=== PATIENT | female | born 1975 | race Caucasian/White ===

== ENCOUNTER 2024-08-31 19:01 | Emergency (ER) | payer MEDICAID ==
[~2024-08-31] VITALS: Ht 160 cm; Wt 52.5 kg
[2024-08-31 19:11] VITALS: TEMP 97.6
[2024-08-31 19:27] LABS: BASOPHILS # (AUTO) 0.1 X10'3 (0-0.2); BASOPHILS % (AUTO) 1.3 % (0-1); EOSINOPHILS # (AUTO) 0.1 X10'3 (0-0.9); EOSINOPHILS % (AUTO) 1.2 % (0-6); HEMATOCRIT 26.7 % (35.0-45.0); HEMOGLOBIN 8.3 g/dl (12.0-16.0); LYMPHOCYTES % (AUTO) 25.5 % (21-51); MEAN CORPUSCULAR HEMOGLOBIN 21.2 PG (27.0-31.0); MEAN CORPUSCULAR HGB CONC 31.2 g/dL (33.0-36.5); MEAN PLATELET VOLUME 7.4 FL (7.4-10.4); MONOCYTES # (AUTO) 0.5 X10'3 (0-0.9); MONOCYTES % (AUTO) 6.6 % (2-12); NEUTROPHILS # (AUTO) 5.1 X10'3 (1.8-7.7); NEUTROPHILS % (AUTO) 65.4 % (42-75); PLATELET COUNT 454 X10'3 (140-440); RED BLOOD COUNT 3.93 X10'6 (4.20-5.60); RED CELL DISTRIBUTION WIDTH 18.3 % (11.5-14.5); WHITE BLOOD COUNT 7.7 X10'3 (4.5-11.0)
[2024-08-31 19:44] LABS: ALANINE AMINOTRANSFERASE 24 U/L (12-78); ALBUMIN 3.9 G/DL (3.4-5.0); ALBUMIN/GLOBULIN RATIO 1.2 (1.1-1.5); ALKALINE PHOSPHATASE 62 IU/L (46-116); ANION GAP 9 (8-16); ASPARTATE AMINO TRANSFERASE 17 U/L (10-37); BILIRUBIN,TOTAL 0.4 MG/DL (0.1-1.0); BLOOD UREA NITROGEN 16 MG/DL (7-18); BUN/CREATININE RATIO 22.9 (10.0-20.0); CALCIUM 8.9 MG/DL (8.5-10.1); CHLORIDE 105 MMOL/L (99-107); GLUCOSE 88 MG/DL (70-104); LIPASE 83 U/L (16-77); POTASSIUM 3.8 MMOL/L (3.5-5.1); SODIUM 138 MMOL/L (135-145); TOTAL CARBON DIOXIDE 24.5 MMOL/L (24-32); TOTAL PROTEIN 7.1 G/DL (6.4-8.2); eCRCL 82 ML/MIN; eGFR 90 ML/MIN
[2024-08-31 19:48] LABS: PLATELET ESTIMATE INCREASED
[2024-08-31 19:49] LABS: ANISOCYTOSIS 1+; MICROCYTOSIS 2+; POIKILOCYTOSIS FEW
[2024-08-31 21:19] LABS: BILIRUBIN,URINE NEGATIVE (Neg); CLARITY,URINE SLIGHTLY CLOUDY (Clear); COLOR,URINE YELLOW (Yellow); GLUCOSE, URINE NEGATIVE (Neg); KETONES,URINE 15 mg/dl (Neg); LEUKOCYTE ESTERASE ,URINE NEGATIVE (Neg); NITRITES, URINE POSITIVE (Neg); OCCULT BLOOD,URINE NEGATIVE (Neg); PH,URINE 5.5 (4.8-8.0); PROTEIN,URINE NEGATIVE (Neg); UROBILINOGEN,URINE 0.2 E.U/dL (0.2-1.0)
[2024-08-31 21:24] LABS: UA COLLECTION TYPE CLN CATCH MIDSTREAM
[2024-08-31 21:27] LABS: URINE HCG NEGATIVE (NEG)
[2024-08-31 21:29] LABS: BACTERIA,URINE 4+ /HPF (Neg); RBC,URINE NONE SEEN /HPF (0-2); SQUAMOUS EPITHELIAL CELL,UR MODERATE /LPF (FEW)
[2024-08-31] MEDS ORDERED: ketorolac trometh 15mg/ml vial 15 MG/ML ML IV STA (22:16)
[2024-08-31] MEDS: morphine 4 MG/ML inj SYRINge IV ONE ×2 (22:46→23:51)
[2024-08-31] MEDS ORDERED: iohexol 300mg/ml 100ml inj. ONE (23:13)
[2024-08-31] MEDS: CefTRIAXone 2gm/D5W 50ml BAG 50 ML IV ONE (23:17)
[2024-09-01] MEDS ORDERED: morphine 4 MG/ML inj SYRINge IV ONE (01:05)
[2024-09-01] MEDS: morphine 4 MG/ML inj SYRINge IV ONE (01:17)
[2024-09-01] MEDS: metroNIDAZOLE-Flagyl 500mg/NS 100 ML IV STA (01:52)
[2024-09-01] MEDS ORDERED: CEFD300C3 PO (01:53)
[2024-09-01] MEDS ORDERED: METR-159 PO (01:53)
[2024-09-01] MEDS: morphine sulfate IR 15MG tablet PO ONE (02:54)
[2024-09-01 04:18] VITALS: BP 95/51; PULSE 64; RESP 14; O2SAT 99
== END 2024-09-01 04:21 | disposition home or self-care (01) ==
LOC: ER 19:02
DX: K52.9 Noninfective gastroenteritis and colitis, unspecified (principal); D64.9 Anemia, unspecified
CPT/HCPCS: 74177; 80053; 81001; 81025; 83690; 85008; 85025; 87077; 87088; 87186; 96365; 96367; 96375; 96376; 99285; J0696; J2270; J3490; Q9967

== ENCOUNTER 2025-02-13 04:44 | Emergency (ER) | payer MEDICAID ==
[~2025-02-13] VITALS: Ht 160 cm; Wt 52.5 kg
--- NOTE | 2025-02-13 09:27 | ELECTROCARDIOGRAPH REPORT ---
[facility] Test Date: 2025-02-13 Test Time: 09:22:54 Pat Name: JOHN HERNANDES Department: [facility]- Patient ID: [facility]-[id number] Room: Gender: F Laser Technician: : 1975 Requested By: SANYA CABALLERO Order Number: [id number] Reading MD: Dr. Kwabena Tillman Measurements Intervals [place] Rate: 69 P: 56 CT: 121 QRS: 73 QRSD: 99 T: 36 QT: 391 QTc: 419 Interpretive Statements Ventricular-paced complexes No further rhythm analysis attempted due to paced rhythm Electronically Signed On 02-16-2025 21:45:[address] Kwabena Tillman Please click the below link to view image of tracing.
--- NOTE | 2025-02-13 09:38 | RADIOLOGY REPORT ---
CHEST RADIOGRAPH Indication: CP Technique: Single frontal view of the chest was obtained COMPARISON: None FINDINGS: Lines and Tubes: None Lungs: Clear Pleura: No effusion. No pneumothorax. Cardiomediastinal contours: Unremarkable Bones: Unremarkable IMPRESSION: No acute disease.
[2025-02-13 09:47] LABS: MEAN PLATELET VOLUME 8.1 FL (7.4-10.4); RED CELL DISTRIBUTION WIDTH 19.8 % (11.5-14.5)
--- NOTE | 2025-02-13 09:50 | Physician Documentation ---
History of Present Illness ~ Chief Complaint: See Chief Complaint Stated Complaint: SEE CHIEF COMPLAINT M ALS Time Seen by MD: 09:01 HPI This is a 49-year-old female who presents by EMS for chest pain, nausea, dry heaving, and diarrhea onset last night, patient reports she is unable to vomit due to history of gastric bypass surgery. Patient additionally reports diaphoresis when symptoms were present. Reports the chest pain has decreased though is still present substernally. Patient reports no abdominal pain. Last bowel movement 4:00 a.m.. Patient reports that she has had similar symptoms intermittently since May when starting on multiple medications she reports he has discussed this with her primary care provider who is attempting adjust her medications the patient reports follow up appointment with primary in the coming weeks. Medication Reconciliation Allergies: Coded Allergies: No Known Allergies (Unverified , 02/13/25) Scheduled Cephalexin*Monohydrate* (Keflex*), 1 CAP PO QID Past Medical History Past Surgical History: gastric bypass Review of Systems ROS As stated above in the HPI, otherwise all systems are reviewed and negative. Physical Exam Vital Signs: Source: Temporal, Heart Rate: 93, Respiratory Rate: 18, BP: 95/55, Pulse Oximetry: 100, Weight: 52.500 Physical Exam VITALS: Reviewed and as above. GENERAL: Alert, nontoxic appearing, no apparent distress. RESPIRATORY: No increased work of breathing, no respiratory distress, speaking in full clear sentences clear lung sounds in all horowitz CV: Regular rate and rhythm no murmur BACK: No CVA tenderness GI: Mild upper abdominal tenderness greatest in left upper quadrant otherwise soft, non distended, no rebound, no guarding, bowel sounds present MUSCULOSKELETAL: SKIN: Warm and dry Progress Results/Orders Results/Orders Orders - SANYA CABALLERO Chest,Single View (02/13/25 09:11) Monitor (02/13/25 09:11) Saline Lock (02/13/25 09:11) Oxygen (02/13/25 09:11) Completed Orders - SANYA CABALLERO Cbc/Diff (02/13/25 09:11) Chest,Single View (02/13/25 09:11) PBNP (02/13/25 09:11) Electrocardiogram (02/13/25 09:11) Hs Troponin I W Calculations (02/13/25 09:11) Hs Troponin I W Calculations (02/13/25 11:11) Hcg, Ur Ql (02/13/25 09:11) Lipase (02/13/25 09:11) CMP (02/13/25 09:11) Normal Saline 1000ml (0.9% Sodium Chlori (02/13/25 10:30) Ua W/Microscopic, Cult If Ind (02/13/25 10:04) Vital Signs 02/13/25 02/13/25 02/13/25 04:48 10:21 10:39 Pulse 93 80 Resp 18 18 17 B/P (MAP) 95/55 116/77 (90) Pulse Ox 100 98 Laboratory Tests Test 02/13/25 09:31 02/13/25 10:04 02/13/25 10:44 White Blood Count 6.6 Red Blood Count 3.82 L Hemoglobin 7.9 L Hematocrit 26.5 L Mean Corpuscular Volume 69.4 L Mean Corpuscular Hemoglobin 20.7 L Mean Corpuscular Hemoglobin Concent 29.8 L Red Cell Distribution Width 19.8 H Platelet Count 447 H Mean Platelet Volume 8.1 Neutrophils (%) (Auto) 76.3 H Lymphocytes (%) (Auto) 17.4 L Monocytes (%) (Auto) 5.7 Eosinophils (%) (Auto) 0.1 Basophils (%) (Auto) 0.5 Neutrophils # (Auto) 5.0 Lymphocytes # (Auto) 1.1 Monocytes # (Auto) 0.4 Eosinophils # (Auto) 0.0 Basophils # (Auto) 0.0 CBC Comment Platelet Estimate Increased Large Platelets Few Red Blood Cell Morphology Perf Polychromasia Few Hypochromasia 1+ Basophilic Stippling Anisocytosis 2+ Microcytosis 2+ Elliptocytes Few Sodium Level 143 Potassium Level 3.8 Chloride Level 108 H Carbon Dioxide Level 25.3 Anion Gap 10 Blood Urea Nitrogen 15 Creatinine 0.63 Estimated GFR/1.73 m2 > 90 BUN/Creatinine Ratio 23.8 H Glucose Level 98 Calcium Level 9.0 Total Bilirubin 0.3 Aspartate Amino Transf (AST/SGOT) 19 Alanine Aminotransferase (ALT/SGPT) 23 Alkaline Phosphatase 59 Troponin I High Sensitivity 5 4 Pro-B-Type Natriuretic Peptide 819 H Total Protein 7.3 Albumin 3.9 Globulin 3.4 Albumin/Globulin Ratio 1.1 Lipase 63 Chemistry Comments Urine Specimen Description Cln catch midstream Urine Color Yellow Urine Clarity Slightly cloudy Urine pH 6.0 Urine Specific [place] >=1.030 Urine Protein Trace Urine Glucose (UA) Negative Urine Ketones 40 H Urine Occult Blood Large H Urine Nitrite Positive H Urine Bilirubin Small Urine Urobilinogen 0.2 Urine Leukocyte Esterase Negative Urine RBC 3-10 Urine WBC 10-20 H Urine Squamous Epithelial Cells Many Urine Bacteria 4+ Urine Mucus Moderate Urine Culture Indicated Rejected for culture Volume Urine Centrifuged 10 ml Urine HCG, Qualitative Negative Urine Comment Troponin I High Sens Percent Delta 20 Troponin I Hi Sens Absolute Change -1 EKG/XRAY/CT/US/VASC/MRI EKG : Additional Comment EKG at 09 interpreted by myself as: Sinus rhythm at a rate of 69, normal axis, no ST segment elevation or depression, QTC of 380 milliseconds interpreted as within normal limits Chest X-Ray : Additional Comments Exam: CHEST,SINGLE VIEW CHEST RADIOGRAPH Indication: CP Technique: Single frontal view of the chest was obtained COMPARISON: None FINDINGS: Lines and Tubes: None Lungs: Clear Pleura: No effusion. No pneumothorax. Cardiomediastinal contours: Unremarkable Bones: Unremarkable IMPRESSION: No acute disease. Electronically Signed by:MARY RAYGOZA MD Date & Time: 02/13/25935 Dictated by: MARY RAYGOZA MD Dictation date and time: 02/13/25935 I have reviewed and agree with the radiology report. I have reviewed and interpreted the imaging as: No focal consolidation or pneumothorax Heart Score: Heart Score Response (Comments) Value History Slightly Suspicious 0 EKG Normal 0 Age 45-64 1 Risk Factors No known risk factors 0 Troponin Normal limit 0 Total 1 Medical Decision Making Findings This 49-year-old female presented with nausea, dry heaving, diarrhea, and chest discomfort onset last night. Patient reports that she has experienced similar episodes previously though this episode lasted longer than usual, patient reported episodes began after starting on multiple medications May and she is currently working with her primary care provider to adjust medications. Due to patient reporting chest pain ACS workup was initiated, EKG did not show dysrhythmia or evidence of infarction or ischemia and repeat troponins were not elevated, given patient's lack of risk factors heart score was 1. Mild tenderness on physical exam in upper abdomen attributed to recent dry heaving, lab work was without significant acute abnormality as anemia is a known chronic condition for patient, urinalysis did demonstrate evidence of urinary tract infection. Patient reported feeling significantly improved after 1 L fluid bolus and with careful shared decision-making patient will be discharged to follow up with primary care for medication adjustment as I believe symptoms are most likely related to medication adverse effects, patient will be discharged on course of oral antibiotics for UTI. Patient is hemodynamically stable and otherwise well-appearing. Patient provided home care instructions, return to care precautions, and follow up instructions verbalized understanding of. Differential Dx:Considerations: Include: angina, chest wall pain, cholelit hiasis, CHF, costochondritis, esophageal reflux/spasm, gastritis, herpes zoster, myocardial infarction, pericarditis, pleuritis, pneumonia, pneumothorax, pulmonary embolus, other (Serotonin syndrome, long QT, bowel obstruction) Departure Time of Disposition: 12:02 Disposition: HOME / SELF CARE / HOMELESS Impression: Primary Impression: Nausea vomiting and diarrhea Additional Impressions: Urinary tract infection Qualified Codes: N30.01 - Acute cystitis with hematuria Anemia Qualified Codes: D64.9 - Anemia, unspecified Condition: Improved Discharge Instructions: Diarrhea, Adult, Food Choices to Help Relieve Diarrhea, Adult Additional Instructions: Your lab work and EKG was reassuring against an emergent condition, given your report of symptoms beginning after beginning medications in May I do believe this is related to her medications please discuss with her primary care provider medication adjustments to prevent these symptoms in the future. It is reassuring your feeling better, please stay well hydrated, please begin eating as tolerated. Your lab work did demonstrate evidence of urinary tract infection, please take the antibiotics as prescribed. Please follow up with your primary care provider in the next few days. Please return to the emergency department for any new or worsening concerning symptoms. Additionally there was one abnormal lab that would like for you to follow up with your primary care provider about called a pro BNP, this lab was elevated today and should be rechecked and further worked up if it remains elevated. Referrals: NO PRIMARY CARE PROVIDER (PCP) Prescriptions Cephalexin*Monohydrate* (Keflex*) 500 Mg Capsule 1 CAP PO QID for 7 Days, #28 CAP Prov: SANYA CABALLERO 02/13/25 Education Educated: Patient Educated regarding: diagnosis, treatment, prognosis, need for follow up Signature Scribe Signature: No scribe Attestation: The note accurately reflects work and decisions made by me.EMMIE Cary 02/13/25 20:56 SANYA CABALLERO Feb 13, 2025 09:50
[2025-02-13 10:01] LABS: CREATININE 0.63 MG/DL (0.40-0.90); TOTAL CARBON DIOXIDE 25.3 MMOL/L (24-32); eCRCL 90 ML/MIN; eGFR > 90 ML/MIN
[2025-02-13 10:09] LABS: PRO BRAIN NATRIURETIC PEPTIDE 819 PG/ML (0-125)
[2025-02-13 10:21] VITALS: BP 116/77; PULSE 80; O2SAT 98
[2025-02-13 10:28] LABS: ELLIPTOCYTES FEW; LARGE PLATELETS FEW; PLATELET ESTIMATE INCREASED
[2025-02-13 10:30] LABS: URINE HCG NEGATIVE (NEG)
[2025-02-13 10:33] LABS: LEUKOCYTE ESTERASE ,URINE NEGATIVE (Neg); NITRITES, URINE POSITIVE (Neg); OCCULT BLOOD,URINE LARGE (Neg)
[2025-02-13 10:39] VITALS: RESP 17
[2025-02-13 10:39] LABS: UA COLLECTION TYPE CLN CATCH MIDSTREAM
[2025-02-13 10:42] LABS: MUCUS STRANDS MODERATE /LPF (Neg); SQUAMOUS EPITHELIAL CELL,UR MANY /LPF (FEW)
[2025-02-13] MEDS ORDERED: CEPH-585 PO (12:02)
[2025-02-13] MEDS: normal saline 1000ML IV soln IVB ONE (12:03)
== END 2025-02-13 12:24 | disposition home or self-care (01) ==
LOC: ER 04:45
DX: N39.0 Urinary tract infection, site not specified (principal); D64.9 Anemia, unspecified; R11.2 Nausea with vomiting, unspecified; R19.7 Diarrhea, unspecified; Z95.0 Presence of cardiac pacemaker
CPT/HCPCS: 36415; 71045; 80053; 81001; 81025; 83690; 83880; 84484; 85008; 85025; 93005; 96360; 99285; J7030

== ENCOUNTER 2025-03-01 09:08 | Observation (INO) | payer MEDICAID ==
[~2025-03-01] VITALS: Ht 165.1 cm; Wt 66.0 kg
[2025-03-01] VITALS (21 sets, daily range): BP systolic 78–112; BP diastolic 47–72; PULSE 56–87; RESP 14–16; TEMP 97.6–98.2; O2SAT 95–100
[2025-03-01] MEDS ORDERED: fentaNYL/PF 50MCG/1 ML 2ML syringe ONE (10:12)
[2025-03-01] MEDS ORDERED: midazolam 1 mg/ML 2ml injection ONE ×2 (10:12→11:12)
[2025-03-01] MEDS ORDERED: LIDOcaine 1% 30ml preserv. free vial ONE (10:12)
[2025-03-01] MEDS ORDERED: iohexol 350 MG/ML 50ML vial IV ONE (10:12)
--- NOTE | 2025-03-01 10:20 | RADIOLOGY REPORT ---
DI CHEST,TWO VIEWS CLINICAL HISTORY: PREOP HEART CATH COMPARISON: DI CHEST,SINGLE VIEW on DOS: 02/13/25 TECHNIQUE: Frontal and lateral view of the chest was obtained FINDINGS: Lines and Tubes: None Lungs: No focal consolidation. Pleura: No effusion. No pneumothorax. Cardiomediastinal contours: Unremarkable Bones: No acute osseous abnormality. IMPRESSION: 1. No acute cardiopulmonary disease.
[2025-03-01 10:32] LABS: MEAN PLATELET VOLUME 7.8 FL (7.4-10.4); RED CELL DISTRIBUTION WIDTH 19.3 % (11.5-14.5)
[2025-03-01] MEDS ORDERED: BUSP5TAB3 PO (10:38)
[2025-03-01] MEDS ORDERED: SUVO10TA PO (10:38)
[2025-03-01] MEDS ORDERED: SERT-434 PO (10:38)
[2025-03-01] MEDS ORDERED: FERR325T7 PO (10:38)
[2025-03-01] MEDS ORDERED: HYDR-3717 PO (10:38)
--- NOTE | 2025-03-01 10:40 | ELECTROCARDIOGRAPH REPORT ---
[facility] Test Date: 2025-03-01 Test Time: 09:24:05 Pat Name: JOHN HERNANDES Department: [facility]ORT STAY 1ST FLOOR [id number] Room: Gender: F Contracting Engineer: MICHELA : 1975 Requested By: VIVIANA GONZALEZ Order Number: [id number] Reading MD: Dr. DANUTA Greer Measurements Intervals [place] Rate: 53 P: 70 DC: 133 QRS: 82 QRSD: 96 T: 58 QT: 416 QTc: 391 Interpretive Statements Sinus rhythm Electronically Signed On 03-01-2025 17:41:[address] DANUTA Greer Please click the below link to view image of tracing.
[2025-03-01 10:45] LABS: APTT 27 SECONDS (22-32); CREATININE 0.80 MG/DL (0.40-0.90); INR 1.1 INR; TOTAL CARBON DIOXIDE 27.6 MMOL/L (24-32); eCRCL 77 ML/MIN; eGFR 77 ML/MIN
[2025-03-01 11:05] LABS: EOSINOPHILS % (MANUAL) 2.0 % (0-6); LYMPHOCYTES % (MANUAL) 36.0 % (21-51); MONOCYTES % (MANUAL) 10.0 % (2-12); NEUTROPHILS % (MANUAL) 52.0 % (42-75)
[2025-03-01 11:06] LABS: PLATELET ESTIMATE NORMAL
[2025-03-01 11:07] LABS: ELLIPTOCYTES FEW
[2025-03-01] MEDS ORDERED: OXAZEpam 15mg capsule PO PRN (12:20)
[2025-03-01] MEDS ORDERED: ondansetron/PF 4mg/2ml inj IV PRN ×2 (12:20→16:40)
[2025-03-01] MEDS ORDERED: HYDROcodone/acetaminophen 10/325mg tab PO PRN (12:20)
[2025-03-01] MEDS ORDERED: HYDROcodone/acetaminophen 5mg/325mg tablet PO PRN (12:20)
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
[2025-03-01] MEDS ORDERED: potassium Cl 20 mEq SR tablet PO PRN ×2 (16:40)
[2025-03-01] MEDS ORDERED: potassium Cl 40MEQ/1/2NS 520ml 520 ML IV PRN (16:40)
[2025-03-01] MEDS ORDERED: magnesium sulf-water 4G/100mL 100 ML IV PRN (16:40)
[2025-03-01] MEDS ORDERED: bisacodyl 10mg suppository rectal RC PRN (16:40)
[2025-03-01] MEDS ORDERED: magnesium hydroxide 30ml (MOM) UD suspension PO PRN ×2 (16:40)
[2025-03-01] MEDS ORDERED: magnesium Cl slow-release 64mg tablet PO PRN (16:40)
[2025-03-01] MEDS ORDERED: mag hydrox/Alum hydrox/simeth 30ml oral suspension PO PRN (16:40)
[2025-03-01] MEDS ORDERED: magnesium sulf-water 2g/50mL 50 ML IV PRN (16:40)
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
[2025-03-01] MEDS: normal saline 1000ml 1,000 ML IV SCH (18:07)
[2025-03-01] MEDS: K and/or MAG REPLACEMENT MC SCH (18:53)
[2025-03-01] MEDS: HYDROcodone/acetaminophen 5mg/325mg tablet PO PRN (19:25)
[2025-03-01] MEDS: docusate sod 100mg capsule PO SCH (20:00)
[2025-03-01 20:27] LABS: % IRON SATURATION 5 % (11-46)
--- NOTE | 2025-03-01 20:50 | HISTORY AND PHYSICAL ---
History & Physical Providers to ~ History of Present Illness Reason for Admit\Complaint: Anemia status post cardiac catheterization History of Present Illness Patient was evaluated by Dr. Bush today for Class three angina pectoris. Recurrent visits to the emergency room for nausea vomiting chest pain. Lexiscan on 02/20/2025 showed anterior and inferior reversible ischemia performed at [facility]. Cardiac catheterization was done by Dr. Bush which showed normal coronary angiogram normal left ventriculogram ejection fraction 60%. He recommended to admit the patient for blood transfusion in view of her documented ischemia. Hemoglobin is 7.5. Patient denied any cardiovascular symptoms no shortness of breath to me. she is status post Cathi-en-Y bypass. Patient does not feel she has menorrhagia she has not noticed any visible blood from anywhere. No nausea vomiting or abdominal pain. Dr. Bush recommended she needs to return to her primary care have upper GI and lower GI endoscopy. Allergies: Coded Allergies: No Known Allergies (Unverified , 02/13/25) Home Medications Home Medications Active Reported Sertraline HCl 100 Mg Tablet 1 Tab PO BID Ferrous Sulfate 325 Mg (65 Mg Iron) Tablet.dr 1 Tab PO HS Buspar* (Buspirone HCl) 5 Mg Tablet 1 Tab PO BID Belsomra (Suvorexant) 10 Mg Tablet 10 Mg PO HS Atarax* (Hydroxyzine HCl) 10 Mg Tablet 1 Tab PO QID PRN Past Surgical History Surgical History Comment gastric bypass ROS ROS As stated above in the HPI, otherwise all systems are reviewed and negative. Exam Vitals: Vital Signs Date Time Temp Pulse Resp B/P (MAP) Pulse Ox O2 Delivery O2 Flow Rate FiO2 03/01/25 19:00 14 95 Room Air 03/01/25 18:10 63 03/01/25 17:00 103/68 03/01/25 10:30 98.2 General: General-patient not in any acute distress, alert awake oriented, age-appropriate HEENT-atraumatic normocephalic, neck supple without elevated JVD, no thyromegaly or carotid bruit. No lymphadenopathy bilaterally. Eyes-no icterus or pallor seen in eyes Chest-clear to auscultation bilaterally, breathing nonlabored no tachypnea, no wheezing, no crepitation, no crackles. Heart-S1-S2 normal, regular heart rate no murmur Abdomen bowel sounds positive on auscultation, soft nondistended nontender no guarding, no rigidity Skin - no signs of hematoma over right groin on palpation Neurology-grossly intact, nonfocal alert awake oriented Extremity- no pedal edema able to move all 4 extremities/ambulate Psychiatry - patient is not confused or agitated cooperated during physical examination Diagnostic Data Last Recorded Lab Results: 03/01/25 0945 03/01/2545 Diagnostic Data: Laboratory Tests Test 03/01/25 09:45 Prothrombin Time 11.5 SECONDS (9.0-12.0) INR International Normalized Ratio 1.1 INR Activated Partial Thromboplast Time 27 SECONDS (22-32) Coagulation Comments Additional Plan Patient was evaluated by Dr. Bush today for Class three angina pectoris. Recurrent visits to the emergency room for nausea vomiting chest pain. Lexiscan on 02/20/2025 showed anterior and inferior reversible ischemia performed at [facility]. Cardiac catheterization was done by Dr. Bush which showed normal coronary angiogram normal left ventriculogram ejection fraction 60%. He recommended to admit the patient for blood transfusion in view of her documented ischemia. Hemoglobin is 7.5. Patient denied any cardiovascular symptoms no shortness of breath to me. she is status post Cathi-en-Y bypass. Patient does not feel she has menorrhagia she has not noticed any visible blood from anywhere. No nausea vomiting or abdominal pain. Dr. Bush recommended she needs to return to her primary care have upper GI and lower GI endoscopy. 1 unit packed RBC blood transfusion ordered iron studies and stool occult blood testing also ordered we will follow the results. Patient is dealing with stressors in life her in September 2024. We will continue to monitor patient's labs and vitals closely . Code status discussed with the patient patient wishes full code Time spent in discussing code status 16 minutes. We will do home medication reconciliation once updated in electronic by nursing staff or pharmacist. Further management depending on response to treatment and as per recommendation by import/export specialist I will continue to follow patient in a.m. Date of Service: Mar 01, 2025 Billing Provider: ALONSO XIONG MD Common Visit Codes: 47844-YVPKVMK INP/OBS CARE (HIGH) Secondary Visit Codes: 93904-ZAOSNMLI CARE PLAN 30 MINUTES ALONSO XIONG MD Mar 01, 2025 20:50
[2025-03-01] MEDS: ondansetron/PF 4mg/2ml inj IV PRN (23:52)
--- NOTE | 2025-03-02 01:01 | RADIOLOGY REPORT ---
CHEST RADIOGRAPH Indication: SOB Technique: Single frontal view of the chest was obtained COMPARISON: DI CHEST,TWO VIEWS on DOS: 03/01/25, DI CHEST,SINGLE VIEW on DOS: 02/13/25 FINDINGS: Lungs and pleural spaces are clear. Cardiac silhouette and spike are within normal limits. Bones and soft tissues demonstrate no significant abnormality. IMPRESSION: No acute disease.
[2025-03-02 01:59] LABS: MEAN PLATELET VOLUME 7.8 FL (7.4-10.4); RED CELL DISTRIBUTION WIDTH 19.9 % (11.5-14.5)
[2025-03-02] MEDS: calcium chloride inj. 1,000 MG in normal saline 100ml IV soln 100 ML IV ONE (02:05)
[2025-03-02 02:15] LABS: APTT 25 SECONDS (22-32); INR 1.2 INR
[2025-03-02] MEDS: calcium chloride 100 MG/1 ML inj IV ONE (03:44)
[2025-03-02 03:58] LABS: CREATININE 0.75 MG/DL (0.40-0.90); TOTAL CARBON DIOXIDE 20.9 MMOL/L (24-32); eCRCL 83 ML/MIN; eGFR 82 ML/MIN
[2025-03-02 04:06] VITALS: BP 114/76; PULSE 84; RESP 20; TEMP 98; O2SAT 98
[2025-03-02] MEDS: morphine 4 MG/ML inj SYRINge IV PRN (05:33)
[2025-03-02 06:00] VITALS: BP 96/57; PULSE 62; RESP 13; TEMP 97.2; O2SAT 98
[2025-03-02 07:37] LABS: MEAN PLATELET VOLUME 8.0 FL (7.4-10.4); RED CELL DISTRIBUTION WIDTH 19.9 % (11.5-14.5)
[2025-03-02 07:47] LABS: CREATININE 0.56 MG/DL (0.40-0.90); TOTAL CARBON DIOXIDE 24.1 MMOL/L (24-32); eCRCL 111 ML/MIN; eGFR > 90 ML/MIN
[2025-03-02 08:00] VITALS: RESP 13; O2SAT 98
--- NOTE | 2025-03-02 08:27 | RADIOLOGY REPORT ---
Exam: US US NON VASCULAR Clinical History: hematoma to r groin Comparison: None Technique: Targeted sonographic evaluation of the soft tissues of the right groin was obtained utilizing grayscale and color Doppler imaging. Findings/Impression: Reniform hypoechoic structure in the subcutaneous soft-tissue of the right groin measuring 1.0 x 0.9 cm possibly representing a lymph node versus small hematoma. Clinical correlation advised.
[2025-03-02 08:34] LABS: LEUKOCYTE ESTERASE ,URINE NEGATIVE (Neg); NITRITES, URINE POSITIVE (Neg); OCCULT BLOOD,URINE NEGATIVE (Neg)
[2025-03-02 08:45] LABS: UA COLLECTION TYPE NON-SPECIFIED
[2025-03-02 08:48] LABS: SQUAMOUS EPITHELIAL CELL,UR FEW /LPF (FEW)
[2025-03-02] MEDS ORDERED: FERR325T7 PO (10:33)
[2025-03-02] MEDS ORDERED: DOCU-148 PO (10:34)
[2025-03-02] MEDS ORDERED: ACET-1008 PO (10:37)
[2025-03-02 11:00] VITALS: BP 91/55; PULSE 69; RESP 17; TEMP 98; O2SAT 96
--- NOTE | 2025-03-02 19:32 | DISCHARGE SUMMARY ---
Discharge Summary Providers to CC ~ Discharge Summary Admission Diagnosis: Anemia , cardiac ischemia Hospital Course DATE OF ADMISSION: 03/01/2025 DATE OF DISCHARGE: 03/02/2025 CBC testing done today showed WBC 5.9, hemoglobin 7.5 hematocrit 23.8 platelet count 359. BNP done on March 02, 2025 sodium 139 potassium 4.2 creatinine 0.56 GFR 90 TIBC 331, serum iron 18 normal liver enzymes. Urine culture done results pending patient is asymptomatic for any symptoms of UTI US NON VASCULARFindings/Impression: Reniform hypoechoic structure in the subcutaneous soft-tissue of the right groin measuring 1.0 x 0.9 cm possibly representing a lymph node versus small hematoma. IMPRESSION: No acute disease. CHEST,TWO VIEWSIMPRESSION: 1. No acute cardiopulmonary disease. Discharge Diagnosis\\Comment: Class three angina pectoris, h/o nausea vomiting , chronic anxiety/depression, moderate anemia Operations\\Procedures: Cardiac catheterization was done by Dr. Bush Consultants: Dr. Bush Complications: None Condition on DC: Stable New Medications: Docusate Sodium (Colace) 100 Mg Capsule 1 CAP PO DAILY for 30 Days, #30 CAP 0 Refills Changed Medications: Acetaminophen (Tylenol) 325 Mg Tablet 1 TAB PO Q8H PRN for pain or fever for 5 Days, #15 TAB (Changed from: QDAY PRN; 30; 30) Ferrous Sulfate (Ferrous Sulfate) 325 Mg (65 Mg Iron) Tablet.dr 1 TAB PO BID for 30 Days, #60 TAB.SR (Changed from: HS) Continued Medications: Buspirone Hcl* (Buspar*) 5 Mg Tablet 1 TAB PO BID Hydroxyzine Hcl* (Atarax*) 10 Mg Tablet 1 TAB PO QID PRN for anxiety Sertraline HCl (Sertraline HCl) 100 Mg Tablet 1 TAB PO BID Suvorexant (Belsomra) 10 Mg Tablet 10 MG PO HS Discharge Summary: As per history and physical note" Patient was evaluated by Dr. Bush today for Class three angina pectoris. Recurrent visits to the emergency room for nausea vomiting chest pain. Lexiscan on 02/20/2025 showed anterior and inferior reversible ischemia performed at [facility]. Cardiac catheterization was done by Dr. Bush which showed normal coronary angiogram normal left ventriculogram ejection fraction 60%. He recommended to admit the patient for blood transfusion in view of her documented ischemia. Hemoglobin is 7.5. Patient denied any cardiovascular symptoms no shortness of breath to me. she is status post Cathi-en-Y bypass. Patient does not feel she has menorrhagia she has not noticed any visible blood from anywhere. No nausea vomiting or abdominal pain. Dr. Bush recommended she needs to return to her primary care have upper GI and lower GI endoscopy." Patient was evaluated by Dr. Bush today for Class three angina pectoris. Recurrent visits to the emergency room for nausea vomiting chest pain. Lexiscan on 02/20/2025 showed anterior and inferior reversible ischemia performed at [facility]. Cardiac catheterization was done by Dr. Bush which showed normal coronary angiogram normal left ventriculogram ejection fraction 60%. He recommended to admit the patient for blood transfusion in view of her documented ischemia. Hemoglobin is 7.5. Patient denied any cardiovascular symptoms no shortness of breath to me. she is status post Cathi-en-Y bypass. Patient does not feel she has menorrhagia she has not noticed any visible blood from anywhere. No nausea vomiting or abdominal pain. Dr. Bush recommended she needs to return to her primary care have upper GI and lower GI endoscopy. # moderate anemia- 1 unit packed RBC blood transfusion ordered iron studies and stool occult blood testing also ordered we followed the results. Patient had mild blood transfusion reaction which happened at night and notes reviewed. Instructions for future blood transfusion discussed with the patient . # chronic anxiety and depression, insomnia - Patient is dealing with stressors in life her in September 2024. Nursing staff mentioned that patient has eight kids but during hospitalization I have not seen any family members with her. Patient showed hyper emotional response in visit today. Patient is getting discharged home in stable condition. She has afebrile . Patient is seen and examined on the day of discharge. All labs, diagnostic workup and discharge plan discussed with patient before her discharge presence of nursing staff Conner and charge Nurse Jennifer . All questions and queries answered to the best of my professional medical knowledge. I heard patient's concerns and address appropriately. Patient was cleared by Physical therapy team for home discharge . community services manager involved in patient's discharge plan. Discharge instructions provided to the patient. Please follow-up with Dr Bush ,PCP in 1-2 week after hospital discharge. Continue to monitor blood pressure at home and if any concerns talk to PCP. Increase oral hydration more than 1500 mL per day. Activity as tolerated. Repeat CBC in two weeks with PCP and then monthly for 1st three months for anemia. Patient needs to discuss depression and anxiety issues with PCP in with be beneficial for patient to get psychiatric or psychologist referral in outpatient setting. Right groin hematoma management per retail account specialist. Activity as tolerated General-patient not in any acute distress, alert awake oriented, age-appropriate HEENT-atraumatic normocephalic, neck supple without elevated JVD, no thyromegaly or carotid bruit. No lymphadenopathy bilaterally. Eyes-no icterus or pallor seen in eyes Chest-clear to auscultation bilaterally, breathing nonlabored no tachypnea, no wheezing, no crepitation, no crackles. Heart-S1-S2 normal, regular heart rate no murmur Abdomen bowel sounds positive on auscultation, soft nondistended nontender no guarding, no rigidity Skin - no signs of hematoma over right groin on palpation unchanged since yesterday in size Neurology-grossly intact, nonfocal alert awake oriented Extremity- no pedal edema able to move all 4 extremities Psychiatry - patient is not confused or agitated cooperated during physical examination *Problems/Diagnosis: (1) Anemia Status: Acute Total Time Spent on D/C: > 30 Minutes Date of Service: Mar 02, 2025 Billing Provider: ALONSO XIONG MD Common Visit Codes: 02586-YAB/OBS DISCH DAY >30min ALONSO XIONG MD Mar 02, 2025 19:23
== END 2025-03-02 12:25 | disposition home or self-care (01) ==
LOC: SSTAY O 09:08 → UNDOADMIN 19:22 → PCU 3S 19:22 → UNDOADMIN 20:51 → PCU 3S 20:51 → UNDODISIN 03-02 12:25
PROVIDERS: ADMIT Internal Medicine Cardiovascular Disease; ATTEND Internal Medicine Cardiovascular Disease
DX: I20.9 Angina pectoris, unspecified (principal); R94.39 Abnormal result of other cardiovascular function study; F41.9 Anxiety disorder, unspecified; F32.9 Major depressive disorder, single episode, unspecified; D64.9 Anemia, unspecified; Z79.899 Other long term (current) drug therapy; Z98.890 Other specified postprocedural states
CPT/HCPCS: 36415; 36430; 71045; 71046; 76882; 80048; 80053; 81001; 83540; 83550; 85007; 85025; 85027; 85610; 85730; 86078; 86880; 86885; 86900; 86901; 86920; 87077; 87088; 87186; 93005; 93458; 96365; 96366; 96375; 99152; 99153; A4615; A6258; C1758; C1760; G0378; J1200; J1644; J2003; J2250; J2270; J2405; J3010; J3490; J7030; J7040; P9016; Q9967